=== PATIENT | male | born 1990 | race Caucasian/White ===

== ENCOUNTER 2017-10-31 13:23 | Emergency (ER) | payer SELFPAY ==
[~2017-10-31] VITALS: Ht 185.4 cm; Wt 84.1 kg
[2017-10-31] MEDS ORDERED: BENZOCAINE AEROSOL SPRAY 20%, 60ML TP ONE (14:30)
[2017-10-31] MEDS ORDERED: AMPICILLIN/SULBACTAM 3 GM in SODIUM CHLORIDE 0.9% 100 ML IV ONE (14:30)
[2017-10-31] MEDS ORDERED: DEXAMETHASONE 4 MG/ML, 1ML IVPush ONE (14:30)
[2017-10-31] MEDS ORDERED: MORPHINE SULFATE 4 MG/ML, 1ML IVPush PRN (14:30)
[2017-10-31] MEDS ORDERED: SODIUM CHLORIDE 0.9% 1,000ML IVBOLUS ONE ×2 (14:30→16:00)
[2017-10-31] MEDS ORDERED: KETOROLAC 30 MG/1 ML IVPush ONE (14:30)
[2017-10-31] MEDS ORDERED: SODIUM CHLORIDE FLUSH 10ML SYR IVF ONE (14:30)
[2017-10-31] MEDS ORDERED: BENZOCAINE 20% SPRAY 0.5ML ONE (14:31)
[2017-10-31] MEDS ORDERED: KETOROLAC 30 MG/1 ML ONE (14:31)
[2017-10-31] MEDS ORDERED: DEXAMETHASONE 4 MG/ML, 5ML ONE (14:32)
[2017-10-31] MEDS ORDERED: MORPHINE SULFATE 4 MG/ML, 1ML ONE (14:32)
[2017-10-31 14:39] LABS: ALBUMIN 3.7 g/dL (3.4-5.0); ANION GAP 12 mmol/L (5-15); CALCIUM 9.1 mg/dL (8.5-10.1); CHLORIDE 104 mmol/L (98-107); CREATININE 1.01 mg/dL (0.7-1.3)
[2017-10-31 14:44] LABS: MEAN CORPUSCULAR HEMOGLOBIN 30.9 pg (27.5-34.5); MEAN CORPUSCULAR HGB CONC 34.3 g/dL (33.2-36.2); MEAN CORPUSCULAR VOLUME 90.2 fL (81-97); MEAN PLATELET VOLUME 10.6 fL (7.4-10.4); PLATELET COUNT 220 x10^3/uL (130-400); RED CELL DISTRIBUTION WIDTH 12.9 % (9.4-14.8)
[2017-10-31 15:12] LABS: MD YES
[2017-10-31 15:25] LABS: <PLATELET ESTIMATE> ADEQUATE; <PLT MORPHOLOGY> NORMAL PLT MORPH; <RBC MORPHOLOGY> NORMAL; BAND#(MANUAL) 2.15 x10^3/uL; BANDS%(MANUAL) 9 % (0-7); LYMPHS% (MANUAL) 5 % (22-44); MONOS#(MANUAL) 1.43 x10^3/uL (0.3-2.7); MONOS% (MANUAL) 6 % (2-9); REACTIVE LYMPHS # (MANUAL) 15.77 x10^3/uL (0-0); REACTIVE LYMPHS % (MANUAL) 66 % (0-0); SEG#(MANUAL) 3.35 x10^3/uL (1.8-6.8); SEGS% (MANUAL) 14 % (42-75)
[2017-10-31] MEDS ORDERED: OMNIPAQUE 350 MG/ML, 100ML BOTTLE ONE (15:30)
[2017-10-31 15:48] LABS: ALBUMIN 3.7 g/dL (3.4-5.0); BILIRUBIN, DIRECT 0.3 mg/dL (0.1-0.2)
[2017-10-31 15:50] LABS: BILIRUBIN,INDIRECT 0.9 mg/dL (0.0-2.0); BILIRUBIN,TOTAL 1.2 mg/dL (0.2-1.0); TOTAL PROTEIN 8.8 g/dL (6.4-8.2)
[2017-10-31 17:04] VITALS: BP 124/74
== END 2017-10-31 17:05 | disposition home or self-care (01) ==
LOC: ED 16:50
DX: J36 Peritonsillar abscess (principal); J02.9 Acute pharyngitis, unspecified; R16.0 Hepatomegaly, not elsewhere classified
CPT/HCPCS: 36415; 70491; 80048; 80076; 82040; 85025; 86308; 96361; 96365; 96375; 99285; J0295; J1100; J1885; J7030; Q9967

== ENCOUNTER 2018-12-06 02:50 | Emergency (ER) | payer OTHER ==
--- NOTE | 2018-12-06 02:58 | NUR ---
FIRST CONTACT WITH PT. PT HERE COMPLAINING OF SORE THROAT, STATES THAT HE BELIEVES HE IS GETTING AN ABSCESS AGAIN, CLEARING OWN SECRETIONS, VOICE IS CLEAR HAVING A BAD COLD, STRESSED FOR THE LAST 6 MONTHS RELATED TO THE LOSS OF HIS MOTHER, NO HI/SI. PT'S AOX4. RESPS EVEN AND UNLABORED. BP/SPO2 MONITORS IN PLACE. CALL LIGHT WITHIN REACH. AWAITING EDMD ASSESSMENT AT THIS TIME.
[2018-12-06] MEDS ORDERED: DEXAMETHASONE 4 MG TABLET ONE (03:36)
--- NOTE | 2018-12-06 03:40 | NUR ---
PT MEDICATED PER EMAR. PT TOLERATED WELL. PT'S AOX4. RESPS EVEN AND UNLABORED.
--- NOTE | 2018-12-06 03:41 | NUR ---
PT TO XRAY NOW.
[2018-12-06] MEDS ORDERED: DEXAMETHASONE 4 MG TABLET PO ONE (04:00)
--- NOTE | 2018-12-06 04:05 | NUR ---
pt back to room from xray.
--- NOTE | 2018-12-06 04:50 | NUR ---
edmd at bedside to explain all results. awaiting dc.
[2018-12-06 04:56] VITALS: BP 128/83
--- NOTE | 2018-12-06 04:57 | NUR ---
pt given dc instructions and script. pt educated regarding dc medication. pt's aox4. resps even and unlabored. pt amb to dc with steady gait. no acute distress at dc.
== END 2018-12-06 04:58 | disposition home or self-care (01) ==
LOC: ED 03:58
DX: J15.9 Unspecified bacterial pneumonia (principal); J02.9 Acute pharyngitis, unspecified; Z87.891 Personal history of nicotine dependence
CPT/HCPCS: 71046; 99283

== ENCOUNTER 2018-12-10 03:13 | Emergency (ER) | payer OTHER ==
[~2018-12-10] VITALS: Ht 185.4 cm; Wt 93.6 kg
[2018-12-10 03:14] VITALS: BP 142/62
== END 2018-12-10 04:04 | disposition home or self-care (01) ==
LOC: ED 03:50
DX: J01.00 Acute maxillary sinusitis, unspecified (principal); J00 Acute nasopharyngitis [common cold]; Z87.891 Personal history of nicotine dependence
CPT/HCPCS: 99283

== ENCOUNTER 2018-12-13 01:28 | Emergency (ER) | payer OTHER ==
[~2018-12-13] VITALS: Ht 185.4 cm; Wt 90.9 kg
[2018-12-13] MEDS ORDERED: FLUT9.9S NAS (01:55)
[2018-12-13] MEDS ORDERED: BENZ100C PO (01:55)
--- NOTE | 2018-12-13 01:55 | NUR ---
PT PRESENTED WITH C/O SHARP NUNES THAT STARTED YESTERDAY, + NAUSEA AND PHOTOSENSITIVITY. PAIN WAS IMPROVED WITH TYLENOL SLIGHTLY. MONITORS APPLIED, SIDERAILS UP X2, CALL LIGHT WITHIN REACH
[2018-12-13] MEDS ORDERED: METOCLOPRAMIDE 10MG TABLET PO STA (02:01)
[2018-12-13] MEDS ORDERED: DIPHENHYDRAMINE 25 MG CAPSULE ONE (02:04)
[2018-12-13] MEDS ORDERED: METOCLOPRAMIDE 10MG TABLET ONE (02:05)
--- NOTE | 2018-12-13 02:07 | NUR ---
pt medicated per mar. pt to ct
[2018-12-13] MEDS ORDERED: DIPHENHYDRAMINE 25 MG CAPSULE PO ONE (02:30)
[2018-12-13] MEDS ORDERED: KETOROLAC 30 MG/1 ML ONE (02:49)
[2018-12-13] MEDS ORDERED: AMOXICILLIN/CLAV 875-125MG TABLET ONE (02:55)
--- NOTE | 2018-12-13 02:57 | NUR ---
PT MEDICATED PER SEP, RESTING ON GURNEY, MONITORS IN PLACE, CALL LIGHT WITHIN REACH
[2018-12-13] MEDS ORDERED: AMOXICILLIN/CLAV 875-125MG TABLET PO SCH (03:00)
[2018-12-13] MEDS ORDERED: KETOROLAC 30 MG/1 ML IM ONE (03:00)
== END 2018-12-13 03:35 | disposition home or self-care (01) ==
LOC: ED 01:49
DX: J01.90 Acute sinusitis, unspecified (principal); R51 Headache; J45.909 Unspecified asthma, uncomplicated; Z87.891 Personal history of nicotine dependence
CPT/HCPCS: 70450; 96372; 99284; J1885; J7512; Q0163